=== PATIENT | male | born 1950 | race Caucasian/White ===

== ENCOUNTER 2019-04-25 05:49 | Day surgery (SDC) | payer OTHER ==
[2019-04-19 13:45] VITALS: BMI 29.7
[2019-04-25] MEDS ORDERED: BUPIVACAINE HCL 0.25% 125 MG/50 ML VIAL ONE (07:10)
[2019-04-25] MEDS ORDERED: LIDOCAINE HCL 2% (20ML MULTI-DOSE VIAL) NR ONE (07:10)
[2019-04-25] MEDS ORDERED: MIDAZOLAM HCL 2 MG/2 ML SINGLE DOSE VIAL ONE (07:26)
[2019-04-25] MEDS ORDERED: PROPOFOL 20 ML ONE (07:26)
[2019-04-25] MEDS ORDERED: LIDOCAINE HCL/PF 2% SDV 5ML VIAL ONE (07:39)
[2019-04-25] MEDS ORDERED: DEXAMETHASONE SOD PHOSPHATE 4 MG/1 ML VIAL ONE (07:39)
[2019-04-25] MEDS ORDERED: ONDANSETRON 4 MG/2 ML VIAL ONE (07:39)
[2019-04-25] MEDS ORDERED: BUPIVACAINE HCL/PF 0.25% (2.5MG/ML) 10 ML VIAL IJ ONE (08:30)
[2019-04-25] MEDS ORDERED: oxyCODONE HCL 5 MG TABLET PO PRN (08:55)
[2019-04-25] MEDS ORDERED: ONDANSETRON 4 MG/2 ML VIAL IVPUSH PRN (08:55)
[2019-04-25] MEDS ORDERED: LACTATED RINGERS SOLUTION 1,000 ML IV SCH (09:00)
[2019-04-25 10:05] VITALS: BP 110/65; PULSE 65; TEMP 98
--- NOTE | 2019-04-26 16:06 | PATH ---
Surgical Pathology Report Patient Name: GAB HERNANDEZ [facility]. Rec. #: [id number] /Age/Gender: 1950 (Age: 69) / M Account: [id number] Location: [facility] AMBULATORY Taken: 04/25/2019 Received: 04/25/2019 Reported: 04/26/2019 Physicians: Theodore Vásquez M.D. Specimen(s) Received RIGHT HAND DUPUYTIENS FASCIA Clinical History Right hand Dupuytren's contracture Final Diagnosis RIGHT HAND, DUPUYTREN'S FASCIA, EXCISION: CONSISTENT WITH PALMAR FIBROMATOSIS (DUPUYTREN'S CONTRACTURE). Electronically Signed Darryl Zepeda M.D. Gross Description Received in formalin labeled "right hand Dupuytren's fascia," is a 3.5 x 0.8 x 0.7 cm wilcox portion of fibrous tissue. Telephone Engineer sections are submitted in one cassette. /04/25/2019 saudi04/25/2019
--- NOTE | 2019-04-30 14:45 | OP ---
DATE OF OPERATION: 04/25/2019 PREOPERATIVE DIAGNOSIS: Left small, ring and palm Dupuytren's contracture. POSTOPERATIVE DIAGNOSIS: left small, ring and palm Dupuytren's contracture. OPERATIVE PROCEDURE: Left palm, small finger and ring finger partial palmar fasciectomy and release of Dupuytren's contracture. SURGEON: Jun Hoff MD HOGSHEAD FILLER: KENZIE Morales ANESTHESIA: General. COMPLICATIONS: None. ESTIMATED BLOOD LOSS: Minimal. INDICATIONS FOR PROCEDURE: The patient is a 69-year-old male with the above finding, indicated for operative treatment. Risks, benefits and alternatives were discussed with patient at length. Proper informed consent was obtained. PROCEDURE: After proper identification of patient and correct operative site, patient was brought to the operating room, placed supine on the table, prominences well padded. General anesthesia provided by the anesthesiologist and adequate for procedure. The left upper extremity was prepped and draped in the usual sterile fashion. A well-padded tourniquet was placed over the sterile prep. Esmarch bandage was used to exsanguinate left upper extremity. The tourniquet was inflated to 250 mmHg. Longitudinal incision made in the palmar aspect of the palm from the mid palm up to the MP joints of the long and ring fingers. There was a thick cord in this area which was at about 1 cm proximal to the MP joint creases. The incision was taken sharply through the skin. Blunt and sharp dissection was performed through the subcutaneous tissues. The cord was identified proximally and blunt dissection was performed around it to release it proximally. Neurovascular structures were carefully identified and protected. Proximal and distal dissection was then performed removing the Dupuytren's cord. When this split into the small and ring fingers, this was then followed in a steph-Eryn fashion and the remainder of the cords were resected. This released the contracture of both the small and ring fingers. The wounds were irrigated and repaired using 5-0 fast-absorbing plain gut sutures. Sterile dressings were applied. Splint was placed. Patient was reversed from anesthesia and brought to recovery room in stable condition. He tolerated the procedure well. Marco Alvarez, the clinical education assistant, was integral throughout this procedure. Procedure could not have been performed without a skilled operative clinical education assistant. JUN HOFF M.D. [id number]
== END 2019-04-25 10:07 | disposition home or self-care (01) ==
LOC: FASU 05:49
PROVIDERS: ATTEND Orthopaedic Surgery Hand Surgery
PROC: 0LN80ZZ Release Left Hand Tendon, Open Approach (ICD-10-PCS; 2019-04-25)
PROC: 0LN80ZZ Release Left Hand Tendon, Open Approach (ICD-10-PCS; 2019-04-25)
PROC: 0LN80ZZ Release Left Hand Tendon, Open Approach (ICD-10-PCS; 2019-04-25)
PROC: 0JNK0ZZ Release Left Hand Subcutaneous Tissue and Fascia, Open Approach (ICD-10-PCS; principal; 2019-04-25 07:56)
DX: M72.0 Palmar fascial fibromatosis [Dupuytren] (principal)
CPT/HCPCS: 94760

== ENCOUNTER 2020-05-21 05:57 | Day surgery (SDC) | payer OTHER ==
[2020-05-20 11:48] VITALS: BMI 30.7
[2020-05-21] MEDS ORDERED: LIDOCAINE HCL/PF 2% SDV 5ML VIAL ONE (07:15)
[2020-05-21] MEDS ORDERED: MIDAZOLAM HCL 2 MG/2 ML SINGLE DOSE VIAL ONE (07:15)
[2020-05-21] MEDS ORDERED: PROPOFOL 20 ML ONE (07:15)
[2020-05-21] MEDS ORDERED: BUPIVACAINE HCL/PF 0.25% (2.5MG/ML) 10 ML VIAL ONE (07:30)
[2020-05-21] MEDS ORDERED: BUPIVACAINE HCL/PF 0.5% (5MG/ML) 10 ML VIAL ONE (07:30)
[2020-05-21] MEDS ORDERED: ePHEDrine SULFATE 50 MG/1 ML AMPULE ONE (07:48)
[2020-05-21] MEDS ORDERED: DEXAMETHASONE SOD PHOSPHATE 4 MG/1 ML VIAL ONE (08:01)
[2020-05-21] MEDS ORDERED: ONDANSETRON 4 MG/2 ML VIAL ONE (08:01)
[2020-05-21] MEDS ORDERED: SUCCINYLCHOLINE CHLORIDE 200 MG/10 ML SYRINGE ONE (08:05)
[2020-05-21] MEDS ORDERED: KETOROLAC TROMETHAMINE 30 MG/1 ML VIAL ONE (08:37)
[2020-05-21] MEDS ORDERED: BUPIVACAINE HCL/PF 0.5% (5 MG/ML) 30 ML VIAL IJ ONE (08:55)
[2020-05-21] MEDS ORDERED: ACETAMINOPHEN INJECTION 100 ML IVPB ONE (09:32)
[2020-05-21] MEDS ORDERED: ACETAMINOPHEN 1000 MG/100 ML VIAL (NON FORMULARY) IVPB ONE (09:37)
[2020-05-21 11:20] VITALS: BP 130/74; PULSE 71; TEMP 97.9
[2020-05-21] MEDS ORDERED: oxyCODONE HCL 5 MG TABLET PO PRN ×2 (11:24)
[2020-05-21] MEDS ORDERED: ONDANSETRON 4 MG/2 ML VIAL IVPUSH PRN (11:24)
[2020-05-21] MEDS ORDERED: LACTATED RINGERS SOLUTION 1,000 ML IV SCH (11:30)
== END 2020-05-21 11:20 | disposition home or self-care (01) ==
LOC: FASU 05:57
PROVIDERS: ATTEND Orthopaedic Surgery Hand Surgery
PROC: 0LN80ZZ Release Left Hand Tendon, Open Approach (ICD-10-PCS; 2020-05-21)
PROC: 0LN80ZZ Release Left Hand Tendon, Open Approach (ICD-10-PCS; 2020-05-21)
PROC: 0JNK0ZZ Release Left Hand Subcutaneous Tissue and Fascia, Open Approach (ICD-10-PCS; principal; 2020-05-21 07:54)
PROC: 0LN80ZZ Release Left Hand Tendon, Open Approach (ICD-10-PCS; 2020-05-21 07:54)
DX: M72.0 Palmar fascial fibromatosis [Dupuytren] (principal)
CPT/HCPCS: 88304-TC; 94760; J0131